=== PATIENT | female | born 1975 | race Caucasian/White ===

== ENCOUNTER 2021-12-28 01:06 | Inpatient (IN) ==
[2021-12-28] MEDS ORDERED: MIDAZOLAM 2 MG/2 ML VIAL ONE (01:13)
[2021-12-28] MEDS ORDERED: fentaNYL 100 MCG/2 ML VIAL ONE (01:14)
[2021-12-28] MEDS ORDERED: METOPROLOL TARTRATE 5 MG/5 ML VIAL IV ONE (01:19)
[2021-12-28] MEDS ORDERED: HEPARIN 5,000 UNIT/1 ML VIAL ONE (01:34)
[2021-12-28] MEDS ORDERED: ONDANSETRON 4 MG/2 ML VIAL IV PRN (02:08)
[2021-12-28] MEDS ORDERED: NITROGLYCERIN SL 0.4 MG TABLET SL PRN (02:08)
[2021-12-28] MEDS ORDERED: ZALEPLON 5 MG CAPSULE PO PRN (02:12)
[2021-12-28] MEDS ORDERED: SIMETHICONE CHEW 125 MG TABLET PO PRN (02:12)
[2021-12-28] MEDS ORDERED: SODIUM CHLORIDE 0.9% 1,000 ML IV SCH (02:30)
[2021-12-28 02:48] LABS: Basophils % 0.4 % (0.0-0.8); Eosinophils # 0.2 10*3/uL (0.0-0.87); Eosinophils % 1.8 % (0.00-10.9); Hematocrit 40.2 VOL% (35.7-47.0); Hemoglobin 12.7 GM/DL (12.0-16.0); Immature Granulocytes % 0.2 %; Immature Granulocytes Absolute 0.02 #; Mean Corpuscular HGB Conc 31.6 GM/DL (32-36); Mean Corpuscular Volume 86.5 FL (87-102); Monocytes # 0.6 10*3/uL (0.11-0.8); Monocytes % 6.1 % (1.7-12.7); Neutrophils % 61.5 % (38.7-73.9); Platelet Count 225 T/CUMM (130-400); Red Blood Count 4.65 MC/CUMM (3.8-5.5); Red Cell Distribution Width 13.2 % (9.3-17.3); White Blood Count 10.1 T/CUMM (4-12)
[2021-12-28 03:42] LABS: Calcium 8.8 MG/DL (8.5-10.1); Osmolality,Calculated 284.3 MOS/KG (273-304); Potassium 3.6 MMOL/L (3.5-5.1)
[2021-12-28] MEDS: PANTOPRAZOLE 40 MG TABLET PO SCH (08:35)
[2021-12-28] MEDS: METOPROLOL TARTRATE 50 MG TABLET PO SCH ×2 (08:35→21:29)
[2021-12-28] MEDS: TICAGRELOR 90 MG TABLET PO SCH ×2 (08:35→21:29)
[2021-12-28] MEDS: ASPIRIN EC 81 MG TABLET PO SCH (08:35)
[2021-12-28] MEDS ORDERED: diphenhydrAMINE CAP 25 MG CAPSULE PO PRN (09:26)
[2021-12-28] MEDS ORDERED: guaiFENesin/DM ER 600-30 MG TABLET PO PRN (09:26)
[2021-12-28] MEDS ORDERED: BISACODYL 5 MG TABLET PO PRN (09:26)
[2021-12-28] MEDS ORDERED: ACETAMINOPHEN 325 MG TABLET PO PRN (09:26)
[2021-12-28] MEDS ORDERED: ALUMINUM/MAGNES/SIMETH MAX STR 30 ML UDCUP PO PRN (09:26)
[2021-12-28] MEDS ORDERED: MAGNESIUM HYDROXIDE SUSP 30 ML UDCUP PO PRN (09:26)
[2021-12-28] MEDS ORDERED: POLYETHYLENE GLYCOL POWDER 17 GM PACK PO PRN (09:26)
[2021-12-28] MEDS ORDERED: DOCUSATE SODIUM 100 MG CAPSULE PO PRN (09:26)
[2021-12-28] MEDS ORDERED: ATORVASTATIN 40 MG TABLET PO SCH (21:00)
[2021-12-29 05:22] LABS: Basophils % 0.6 % (0.0-0.8); Eosinophils # 0.2 10*3/uL (0.0-0.87); Eosinophils % 2.6 % (0.00-10.9); Hematocrit 37.6 VOL% (35.7-47.0); Hemoglobin 12.2 GM/DL (12.0-16.0); Immature Granulocytes % 0.3 %; Immature Granulocytes Absolute 0.02 #; Lymphocytes # 2.2 10*3/uL (1.4-4.0); Lymphocytes % 31.6 % (21.3-54.2); Mean Corpuscular HGB Conc 32.4 GM/DL (32-36); Mean Corpuscular Volume 85.8 FL (87-102); Mean Platelet Volume 11.5 FL (9.6-12.0); Monocytes # 0.5 10*3/uL (0.11-0.8); Monocytes % 6.6 % (1.7-12.7); Neutrophils % 58.3 % (38.7-73.9); Platelet Count 212 T/CUMM (130-400); Red Blood Count 4.38 MC/CUMM (3.8-5.5); Red Cell Distribution Width 13.3 % (9.3-17.3); White Blood Count 6.9 T/CUMM (4-12)
[2021-12-29 05:47] LABS: Calcium 8.2 MG/DL (8.5-10.1); Potassium 3.7 MMOL/L (3.5-5.1); Risk Ratio 3.69; VLDL Cholesterol 19.8 MG/DL
[2021-12-29] MEDS: METOPROLOL TARTRATE 50 MG TABLET PO SCH (08:36)
[2021-12-29] MEDS: ASPIRIN EC 81 MG TABLET PO SCH (08:36)
[2021-12-29] MEDS: TICAGRELOR 90 MG TABLET PO SCH (08:36)
[2021-12-29] MEDS: PANTOPRAZOLE 40 MG TABLET PO SCH (08:36)
[2021-12-29 10:19] VITALS: BP 95/63
== END 2021-12-29 10:43 | disposition home or self-care (01) | DRG 251 ==
LOC: N.CL 01:06 → N.CC 01:13 → N.TELES 18:20
PROVIDERS: ADMIT Internal Medicine Interventional Cardiology; ATTEND Internal Medicine Interventional Cardiology
PROC: CLCCHCL (ICD-10-PCS; 2021-12-28 01:30)